=== PATIENT | female | born 1990 | race Two or more races ===

== ENCOUNTER 2016-08-28 01:22 | Emergency (ER) | payer BC, MEDICAID ==
--- NOTE | 2016-08-28 19:58 | ER ---
ADMIT: 08/28/2016 RM/LOC: ER [facility] MR#: [id number] [facility] [address] [place] [id number] ARCELIA MOSES [address] [place] [address] Emergency Room Report SEX: F AGE: 26 : 1990 DATE: 08/28/2016 HISTORY OF PRESENT ILLNESS: The patient is a 26-year-old female, 2, para 0 per LMP, which is May 21. The patient is 14 weeks' . The patient came to the ER with chief complaint of noticing lot of blood on the underwear today. The patient denies any previous similar episodes and denied passage of tissue or abdominal pain. The patient also denies any passage of any clots. The patient had no urinary symptoms. No dysuria, hematuria, urgency, or frequency. The patient has been closely followed up with care clinic and previously had ultrasound at 6 weeks, which showed cardiac activity with intrauterine . PHYSICAL EXAMINATION: GENERAL: The patient in the ER is in no pain or distress. HEAD AND NECK: Normal, with normal conjunctivae. CHEST: Clear bilaterally. HEART: Normal heart tones. ABDOMEN: Soft without any tenderness or rebound or guarding. PELVIC: Did not show any blood in the vault, external os is closed. In the bimanual exam, also the patient has closed os. The patient had hemoglobin of 11.9 with beta-HCG of 46,000. Urine was negative for any infection. The patient has a blood group of O positive, and intravaginal ultrasound showed intrauterine with cardiac activity. The patient was reassured and was discharged to home with diagnosis of threatened , intrauterine with cardiac activity. The patient to be followed by primary doctor and Clinic as scheduled, the patient acknowledged she understood the plan and was discharged to home. Sven Olsen MD/ simone JOB #: [id number] CC: Sven Olsen MD, Attending Physician Fuentes Upton, Family Physician
== END 2016-08-28 04:25 | disposition home or self-care (01) ==
LOC: ER 01:22
DX: O20.0 Threatened abortion (principal); O99.281 Endocrine, nutritional and metabolic diseases complicating pregnancy, first trimester; O24.911 Unspecified diabetes mellitus in pregnancy, first trimester; E03.9 Hypothyroidism, unspecified; Z3A.14 14 weeks gestation of pregnancy; Z79.4 Long term (current) use of insulin; Z79.899 Other long term (current) drug therapy